=== PATIENT | female | born 1945 | race Caucasian/White ===

== ENCOUNTER → 2017-10-13 13:17 | Outpatient (CLI) | payer MEDICARE, OTHER, SELFPAY ==
--- NOTE | 2017-10-13 | DI.ECHO.S_ITS ---
[facility]+ [facility] +---------+ : : [address] : : : : [place] : : : : [id number] : : : : Phone: [phone]+ Echocardiogram Report + + :Name: TATO ALEMAN Study Date: 10/13/2017 Height: 63 in : :[facility] Exam Location: IS Weight: 143 lb : : Gender: Female BSA: 1.7 m2 : :: 1945 Age: 72 yrs BP: 130/82 mmHg: :Reason For Study: RBBB : : Performed By: Aubrey Reese : :Referring: SURESH GAGNON : + + Interpretation Summary The left ventricle is normal in size. The ejection fraction is estimated to be 60-65%. Septal motion is consistent with conduction abnormality. Assessment of diastolic parameters indicates a relaxation abnormality of the left ventricle, consistent with normal filling pressures. The right ventricle is normal in size and function. The right ventricular systolic pressure is estimated at 26 mmHg assuming a right atrial pressure of 3 mm Hg. Both atria are normal in size. There is no significant valvular heart disease. The aortic root is normal size. Procedure: A two-dimensional transthoracic echocardiogram with color flow and Doppler was performed. The study quality was technically adequate. There is no prior echocardiogram noted for this patient. The patient had a bundle branch block rhythm during the exam. Left Ventricle: The left ventricle is normal in size. There is normal left ventricular wall thickness. The ejection fraction is estimated to be 60-65%. Septal motion is consistent with conduction abnormality. Assessment of diastolic parameters indicates a relaxation abnormality of the left ventricle, consistent with normal filling pressures. Right Ventricle: The right ventricle is normal in size and function. Atria: Both atria are normal in size. The interatrial septum is intact with no evidence for an atrial septal defect. Mitral Valve: The mitral valve is normal in structure and function. There is trace mitral regurgitation. Aortic Valve: The aortic valve is normal in structure and function. The aortic valve is trileaflet. The aortic valve opens well. No aortic regurgitation is present. Tricuspid Valve: The tricuspid valve is normal in structure and function. There is trace tricuspid regurgitation. The right ventricular systolic pressure is estimated at 26 mmHg assuming a right atrial pressure of 3 mm Hg. Pulmonic Valve: The pulmonic valve is normal in structure and function. There is trace pulmonic regurgitation. There is no significant valvular heart disease. Great Vessels: The aortic root is normal size. The dimensions of the ascending aorta are normal. The pulmonary artery is normal size. The IVC is of normal diameter and collapses greater than 50% with a sniff. This suggests a low right atrial pressure of 3 mm Hg. Pericardium/ Pleura There is no pericardial effusion. There is no pleural effusion. MMode/2D Measurements & Calculations LVIDd: 4.4 cm Ao root diam: 3.0 cm LVIDs: 2.3 cm Aortic Jxn: 2.7 cm FS: 48.0 % asc Aorta Diam: 3.0 cm EPSS: 0.19 cm Ao Arch Diam (Prox Trans): 2.4 cm IVSd: 0.70 cm LVPWd: 0.70 cm LV grier. diameter/BSA (cm/m^2): 2.6 LV sys. diameter/BSA (cm/m^2): 1.4 LA dimension: 3.3 cm RA long axis: 3.9 cm LA A2 area: 15.7 cm2 RA area: 10.8 cm2 LA A4 area: 12.3 cm2 RA vol: 25.4 ml LA length (vol): 4.1 cm RA : 15.1 ml/m2 LA vol: 39.7 ml IVC diam: 1.6 cm LA vol index: 23.7 ml/m2 Doppler Measurements & Calculations Ao V2 max: 132.3 cm/sec MV E max taye: 65.8 cm/sec Ao V2 mean: 95.9 cm/sec MV A max taye: 77.0 cm/sec Ao max P.0 mmHg MV E/A: 0.85 Ao mean P.0 mmHg Med Peak E' Taye: 5.6 cm/sec Ao V2 VTI: 27.1 cm E/E' med: 11.7 MV dec time: 0.24 sec TR max taye: 241.4 cm/sec Pulm A Revs Taye: 36.7 cm/sec TR max P.3 mmHg PA V2 max: 85.6 cm/sec PA V2 mean: 64.1 cm/sec PA mean P.8 mmHg PA pr(Accel): 36.6 mmHg PA Accel Time: 0.09 sec Reading Physician:EDWARDO
== END ==
PROVIDERS: Visit Provider Internal Medicine Cardiovascular Disease
DX: I45.10 Unspecified right bundle-branch block (principal)
CPT/HCPCS: 93306

== ENCOUNTER → 2019-03-07 13:09 | Outpatient (CLI) | payer MEDICARE, OTHER, SELFPAY ==
[2019-03-07 14:00] LABS: C-Reactive Protein Quant < 0.5 mg/dL (<1.0)
[2019-03-07 14:34] LABS: Hematocrit 42.5 % (36-46); Hemoglobin 14.4 g/dL (12.0-16.0); Mean Corpuscular HGB Conc 33.9 % (30-36); Mean Corpuscular Hemoglobin 31.3 PG (26-34); Mean Corpuscular Volume 92.1 fL (80-100); Platelet Count 340 X10^3/uL (150-400); Red Blood Cell Count 4.61 X10^6/uL (4.0-5.2); White Blood Cell Count 6.1 X10^3/uL (4.5-11.0)
[2019-03-07 15:33] LABS: Erythrocyte Sedimentation Rate 3 MM/HR (0-20)
== END ==
PROVIDERS: Visit Provider Ophthalmology
DX: H34.231 Retinal artery branch occlusion, right eye (principal)
CPT/HCPCS: 36415; 85027; 85651; 86140

== ENCOUNTER → 2020-08-24 09:35 | Outpatient (CLI) | payer MEDICARE, OTHER, SELFPAY ==
[2020-08-24 19:35] LABS: Add Manual Diff / Slide Review NO; Basophils Absolute Auto 0 /uL (0-100); Basophils Percent Auto 0.2 % (0-2); Eosinophils Absolute Auto 100 /uL (0-450); Eosinophils Percent Auto 3.4 % (2-4); Hematocrit 41.8 % (36-46); Hemoglobin 14.3 g/dL (12.0-16.0); Lymphocytes Absolute Auto 1400 /uL (1100-4500); Lymphocytes Percent Auto 32.7 % (25-40); Mean Corpuscular HGB Conc 34.3 % (30-36); Mean Corpuscular Hemoglobin 31.7 PG (26-34); Mean Corpuscular Volume 92.3 fL (80-100); Monocytes Absolute Auto 500 /uL (0-900); Monocytes Percent Auto 11.2 % (3-14); Neutrophils Absolute Auto 2200 /uL (1500-7000); Neutrophils Percent Auto 52.5 % (50-75); Platelet Count 266 X10^3/uL (150-400); Red Blood Cell Count 4.53 X10^6/uL (4.0-5.2); Red Cell Distribution Width 14.2 % (11.6-14.8); White Blood Cell Count 4.2 X10^3/uL (4.5-11.0)
[2020-08-24 19:39] LABS: Alanine Aminotransferase 13 IU/L (<35); Albumin 3.9 g/dL (3.5-5.0); Albumin Globulin Ratio 1.7 (1.0-2.8); Alkaline Phosphatase 71 U/L (38-126); Aspartate Aminotransferase 24 IU/L (14-36); BUN Creatinine Ratio 29.2 (6-22); Bilirubin Total 0.5 mg/dL (0.2-1.3); Blood Urea Nitrogen 14 mg/dL (7-17); Calcium 9.4 mg/dL (8.4-10.2); Carbon Dioxide 27 mmol/L (22-32); Chloride 104 mmol/L (98-107); Cholesterol 188 mg/dL (140-199); Estimated Glomerular Filt Rate > 60.0 mL/min (>60); Globulin 2.3 g/dL (1.7-4.1); Glucose 94 mg/dL (80-110); HDL Cholesterol 70 mg/dL (40-60); HEMOLYSIS < 15 (0-50); LDL Cholesterol Calculated 103 mg/dL (<100); Potassium 4.4 mmol/L (3.4-5.1); Sodium 138 mmol/L (137-145); Total Protein 6.2 g/dL (6.3-8.2); Triglycerides 76 mg/dL (35-150)
[2020-08-24 20:06] LABS: TSH w/ Reflex to FT4 2.24 uIU/mL (0.47-4.68)
== END ==
PROVIDERS: PCP Physician Assistant Medical; Visit Provider Physician Assistant Medical
DX: N39.0 Urinary tract infection, site not specified (principal); R00.1 Bradycardia, unspecified; I44.7 Left bundle-branch block, unspecified; E78.5 Hyperlipidemia, unspecified; R53.83 Other fatigue; R60.0 Localized edema
CPT/HCPCS: 80053; 80061; 84443; 85025; 87086

== ENCOUNTER → 2020-12-21 10:20 | Outpatient (CLI) | payer MEDICARE, OTHER, SELFPAY | PROVIDERS: PCP Physician Assistant; Visit Provider Family Medicine | DX: N23 Unspecified renal colic (principal) | CPT/HCPCS: 87077; 87086 ==

== ENCOUNTER → 2021-02-04 08:58 | Outpatient (CLI) | payer MEDICARE, OTHER, SELFPAY ==
[2021-02-04 19:02] LABS: Add Manual Diff / Slide Review NO; Basophils Absolute Auto 100 /uL (0-100); Basophils Percent Auto 1.3 % (0-2); Eosinophils Absolute Auto 100 /uL (0-450); Eosinophils Percent Auto 2.1 % (2-4); Hematocrit 41.7 % (36-46); Hemoglobin 13.7 g/dL (12.0-16.0); Lymphocytes Absolute Auto 1700 /uL (1100-4500); Lymphocytes Percent Auto 28.7 % (25-40); Mean Corpuscular HGB Conc 32.9 % (30-36); Mean Corpuscular Volume 94.2 fL (80-100); Monocytes Absolute Auto 500 /uL (0-900); Neutrophils Absolute Auto 3600 /uL (1500-7000); Neutrophils Percent Auto 58.9 % (50-75); Platelet Count 346 X10^3/uL (150-400); Red Blood Cell Count 4.43 X10^6/uL (4.0-5.2); Red Cell Distribution Width 12.7 % (11.6-14.8); White Blood Cell Count 6.1 X10^3/uL (4.5-11.0)
[2021-02-04 19:09] LABS: Appearance Urine UA CLEAR; Bilirubin Urine UA NEGATIVE (NEGATIVE); Color Urine UA YELLOW; Glucose Urine UA NEGATIVE (Negative); Ketones Urine UA TRACE (NEGATIVE); Leukocyte Esterase Urine UA NEGATIVE (NEGATIVE); Nitrite Urine UA NEGATIVE (Negative); Occult Blood Urine UA TRACE-INTACT (Negative); Protein Urine UA NEGATIVE (Negative); Urobilinogen Urine UA 0.2 E.U./dL (0.2)
[2021-02-04 19:15] LABS: Cholesterol 270 mg/dL (140-199); HDL Cholesterol 77 mg/dL (40-60); LDL Cholesterol Calculated 179 mg/dL (<100); Triglycerides 72 mg/dL (35-150)
[2021-02-04 19:16] LABS: Alanine Aminotransferase 13 IU/L (<35); Albumin Globulin Ratio 1.6 (1.0-2.8); Alkaline Phosphatase 73 U/L (38-126); Aspartate Aminotransferase 21 IU/L (14-36); BUN Creatinine Ratio 48.9 (6-22); Bilirubin Total 0.5 mg/dL (0.2-1.3); Blood Urea Nitrogen 22 mg/dL (7-17); Calcium 9.6 mg/dL (8.4-10.2); Carbon Dioxide 29 mmol/L (22-32); Chloride 104 mmol/L (98-107); Estimated Glomerular Filt Rate > 60.0 mL/min (>60); Globulin 2.5 g/dL (1.7-4.1); Glucose 95 mg/dL (80-110); HEMOLYSIS < 15 (0-50); Potassium 4.6 mmol/L (3.4-5.1); Sodium 139 mmol/L (137-145); Total Protein 6.5 g/dL (6.3-8.2)
[2021-02-04 19:25] LABS: Bacteria Urine Occasional (0-1); Calcium Oxalate Crystals Urine Few; Culture Indicated Urine Cult Not Indicated; RBC Urine 0-1/HPF (0-5/HPF); Squamous Epithelial Cell Urine 0-1 /HPF (0-5/HPF); WBC Urine 0-1/HPF (0-5/HPF)
== END ==
PROVIDERS: PCP Physician Assistant; Visit Provider Physician Assistant
DX: Z01.818 Encounter for other preprocedural examination (principal); E78.49 Other hyperlipidemia; E78.00 Pure hypercholesterolemia, unspecified; N28.9 Disorder of kidney and ureter, unspecified
CPT/HCPCS: 80053; 80061; 81001; 85025; 87797

== ENCOUNTER 2021-02-06 12:53 | Outpatient (RCR) | payer MEDICARE, OTHER, SELFPAY ==
--- NOTE | 2021-02-06 16:00 | PT.OPPOC ---
Physical, Occupational & Speech Therapy At [facility] Current Diagnoses Other specified disorders of muscle (02/06/21) Visit Care Team Role Provider Type Mariana Nance PA-C Primary Care Provider [employer] Sales Representative Specialty: Medical Address: [address] [place] [address], [id number] Email: [email or web address] Amaury Collins DO Attending Provider Physician Referring Provider Specialty: Family Practice Address: [address] [place] [address], [id number] Email: Plan Of Care PT-OP-T Assessment and Plan Start: 01/31/21 15:55 Freq: Status: Active Protocol: Document 02/06/21 13:00 AMB (Rec: 02/12/21 08:10 AMB [email or web address]) Physical Therapy Assessment Rehab Potential Rehabilitation Potential Fair Evaluation Complexity Number of Personal Factors/Comorbidities 1-2 Number of Body Systems Impaired 1-2 Clinical Presentation at Evaluation Stable Impairments Impairments Functional Activities,Strength Goals Two Impairment Pelvic floor strength Short Term Goal (STG) Lisa will contract her pelvic floor for 10 seconds without compensating with her abdominals. STG Duration 1 month Lacer And Tier Goal (LTG) Lisa will contract her pelvic floor in standing for 10 seconds without compensation. LTG Duration 3 months One Impairment Continence Short Term Goal (STG) Lisa will report less than 3 leaks per week. STG Duration 1 month [facility] Goal (LTG) Lisa will report nocturia of 1 -2x/night or less. LTG Duration 3 months Assessment Summary Assessment Lisa attends physical therapy with leaking, but she is fairly uncertain what causes leaks. Did give her a bladder diary to fill out to understand what is causing leaks (urge vs stress), but pt is getting a knee replacement soon and does not want to return to pelvic floor physical therapy for a few months. Encouraged her in pelvic floor contraction- pt had been using abdominals quite heavily and did educate in pressure management and lifting levator ani during evaluation. Lisa will benefit from continued PT when she is able to attend after her knee replacement. Physical Therapy Plan Frequency and Duration Frequency of Treatment 1/month Duration of Treatment 3 months Plan of Care Start Date 02/06/21 Plan of Care End Date 05/09/21 Therapeutic Interventions Therapeutic Interventions Home Exercise Program,Manual Therapy,Neuromuscular Re- education,Self-Care/Home Management,Therapeutic Activities,Therapeutic Exercises Modalities Biofeedback,Electric Stimulation Next Visit Focus/Plan Next Note Type Treatment Note Next Visit Plan sEMG, progress HEP Plan of Care Dates Plan of Care Start Date 02/06/21 Plan of Care End Date 05/09/21 Electronically Signed by: Frances Shaffer, PT 02/17/21 [id number] Please Sign and Return: I have reviewed this Plan of Care and certify that the skilled therapy services above are required to meet the patient?s needs. Physician Signature Date Printed Name and Credentials Clinical Instructor Signature Printed Name and Credentials
--- NOTE | 2021-02-06 16:00 | PT.OIE ---
Current Diagnoses Other specified disorders of muscle (02/06/21) Past Medical History (Last Updated 09/30/20 @ 07:39 by Abby Landa) Chicken pox (~1951) Chondromalacia of left patellofemoral joint Depression (~2005) History of tubal ligation (~1978) Hx of left knee surgery (~2011) Measles (~1950) Primary osteoarthritis of right knee S/P tonsillectomy and adenoidectomy Skin tag Status post left partial knee replacement (~2011) Status post right partial knee replacement (~2010) Past Surgical History (Last Updated 09/30/20 @ 07:39 by Abby Landa) Anesthesia History of tubal ligation (~1978) Hx of left knee surgery (~2011) S/P tonsillectomy and adenoidectomy Status post left partial knee replacement (~2011) Status post right partial knee replacement (~2010) Visit Care Team Role Provider Type Mariana Nance PA-C Primary Care Provider Advanced Program Manager Rn Specialty: Medical Address: [address] [place] [address], [id number] Email: [email or web address] Amaury Collins DO Attending Provider Physician Referring Provider Specialty: Family Practice Address: [address] [place] [address], [id number] Email: Physical Therapy Initial Evaluation PT-OP-A Visit Information Start: 01/31/21 15:55 Freq: Status: Active Protocol: Document 02/06/21 13:00 AMB (Rec: 02/10/21 11:43 AMB [email or web address]) Out-Patient Physical Therapy Visit Information Visit Information Visit Type Initial Evaluation Visit Start Time 13:00 Visit Stop Time 13:45 Total Visit Minutes 45 Visit Number 1 PT-OP-B Current Condition Start: 01/31/21 15:55 Freq: Status: Active Protocol: Document 02/06/21 12:56 AMB (Rec: 02/06/21 13:40 AMB [id number]) Current Condition History of Current Condition Onset Date 6 months Current Complaints Urgency History of Current Condition Lisa reports drinking 64oz a day of water lately due to a diet and leaking due to that. Does report history of frequent UTIs. Medium leak, but not sure what causes it. Around 1 leak a day. Post void residual was normal. 2 vaginal deliveries- episiotomy with first. Menopause was on hormone replacement. Personal Factors Other Personal Factors That May Effect Pt lives in the [facility], is getting a knee replacement so is hesitant to schedule more appointments. PT-OP-I Pelvic Floor Start: 01/31/21 15:55 Freq: Status: Active Protocol: Document 02/06/21 13:00 AMB (Rec: 02/12/21 08:17 AMB [email or web address]) Pelvic Floor Assessment Urine Pelvic Floor Surgery No Leakage Size Medium Leaks Per Day 1 Voiding Frequency unsure Nocturia 2-3 Bowel Bowel Symptoms Constipation Prolapse Cystocele Grade 1 Perineal Descent Resting Absent Bearing Present Contraction Ability Voluntary Contraction Weak Voluntary Relaxation Weak Manual Muscle Testing Left 2 Manual Muscle Testing Right 2 Manual Muscle Testing Anterior 2 Manual Muscle Testing Posterior 3 PT-OP-T Assessment and Plan Start: 01/31/21 15:55 Freq: Status: Active Protocol: Document 02/06/21 13:00 AMB (Rec: 02/12/21 08:10 AMB [email or web address]) Physical Therapy Assessment Rehab Potential Rehabilitation Potential Fair Evaluation Complexity Number of Personal Factors/Comorbidities 1-2 Number of Body Systems Impaired 1-2 Clinical Presentation at Evaluation Stable Impairments Impairments Functional Activities,Strength Goals Two Impairment Pelvic floor strength Short Term Goal (STG) Lisa will contract her pelvic floor for 10 seconds without compensating with her abdominals. STG Duration 1 month Group Home Goal (LTG) Lisa will contract her pelvic floor in standing for 10 seconds without compensation. LTG Duration 3 months One Impairment Continence Short Term Goal (STG) Lisa will report less than 3 leaks per week. STG Duration 1 month Lollypop Machine Operator Goal (LTG) Lisa will report nocturia of 1 -2x/night or less. LTG Duration 3 months Assessment Summary Assessment Lisa attends physical therapy with leaking, but she is fairly uncertain what causes leaks. Did give her a bladder diary to fill out to understand what is causing leaks (urge vs stress), but pt is getting a knee replacement soon and does not want to return to pelvic floor physical therapy for a few months. Encouraged her in pelvic floor contraction- pt had been using abdominals quite heavily and did educate in pressure management and lifting levator ani during evaluation. Lisa will benefit from continued PT when she is able to attend after her knee replacement. Physical Therapy Plan Frequency and Duration Frequency of Treatment 1/month Duration of Treatment 3 months Plan of Care Start Date 02/06/21 Plan of Care End Date 05/09/21 Therapeutic Interventions Therapeutic Interventions Home Exercise Program,Manual Therapy,Neuromuscular Re- education,Self-Care/Home Management,Therapeutic Activities,Therapeutic Exercises Modalities Biofeedback,Electric Stimulation Next Visit Focus/Plan Next Note Type Treatment Note Next Visit Plan sEMG, progress HEP
--- NOTE | 2021-04-16 09:18 | PT.OPDS ---
Current Diagnoses Other specified disorders of muscle (02/06/21) Visit Care Team Role Provider Type Mariana Nance PA-C Primary Care Provider [employer] Specialty: Medical Address: [address] [place] [address], [id number] Email: [email or web address] Amaury Collins DO Attending Provider Physician Referring Provider Specialty: Family Practice Address: [address] [place] [address], [address] Email: Visit Number Visit Number 1 Discharge Summary PT-OP-B Current Condition Start: 01/31/21 15:55 Freq: Status: Active Protocol: Document 02/06/21 12:56 AMB (Rec: 02/06/21 13:40 AMB [id number]) Current Condition History of Current Condition Onset Date 6 months Current Complaints Urgency History of Current Condition Lisa reports drinking 64oz a day of water lately due to a diet and leaking due to that. Does report history of frequent UTIs. Medium leak, but not sure what causes it. Around 1 leak a day. Post void residual was normal. 2 vaginal deliveries- episiotomy with first. Menopause was on hormone replacement. Personal Factors Other Personal Factors That May Effect Pt lives in the [facility], is getting a knee replacement so is hesitant to schedule more appointments. PT-OP-I Pelvic Floor Start: 01/31/21 15:55 Freq: Status: Active Protocol: Document 02/06/21 13:00 AMB (Rec: 02/12/21 08:17 AMB [email or web address]) Pelvic Floor Assessment Urine Pelvic Floor Surgery No Leakage Size Medium Leaks Per Day 1 Voiding Frequency unsure Nocturia 2-3 Bowel Bowel Symptoms Constipation Prolapse Cystocele Grade 1 Perineal Descent Resting Absent Bearing Present Contraction Ability Voluntary Contraction Weak Voluntary Relaxation Weak Manual Muscle Testing Left 2 Manual Muscle Testing Right 2 Manual Muscle Testing Anterior 2 Manual Muscle Testing Posterior 3 PT-OP-T Assessment and Plan Start: 01/31/21 15:55 Freq: Status: Active Protocol: Document 04/16/21 09:04 AMB (Rec: 04/16/21 09:18 AMB [id number]) Physical Therapy Assessment Goals Two Impairment Pelvic floor strength Short Term Goal (STG) Lisa will contract her pelvic floor for 10 seconds without compensating with her abdominals. STG Duration 1 month Otr Flatbed Driver Goal (LTG) Lisa will contract her pelvic floor in standing for 10 seconds without compensation. LTG Duration 3 months One Impairment Continence Short Term Goal (STG) Lisa will report less than 3 leaks per week. STG Duration 1 month Fpc Goal (LTG) Lisa will report nocturia of 1 -2x/night or less. LTG Duration 3 months Assessment Summary Assessment Called pt and while she is now recovered from her knee replacement, she is going to [place] for 3 months. She would be interested in returning to PT at that point, would also be interested in telehealth if it is offered.
== END 2021-05-28 08:50 ==
LOC: PHYS 12:53
PROVIDERS: PCP Physician Assistant; Referring Provider Family Medicine; Visit Provider Family Medicine
DX: M62.89 Other specified disorders of muscle (principal)
CPT/HCPCS: 97161

== ENCOUNTER → 2021-03-25 11:22 | Outpatient (CLI) | payer MEDICARE, OTHER, SELFPAY | PROVIDERS: PCP Physician Assistant; Visit Provider Physician Assistant | DX: R53.83 Other fatigue (principal); N39.0 Urinary tract infection, site not specified | CPT/HCPCS: 87077; 87086; 87186 ==

== ENCOUNTER → 2021-04-10 08:27 | Outpatient (CLI) | payer MEDICARE, OTHER, SELFPAY ==
[2021-04-10 19:53] LABS: Alanine Aminotransferase 16 IU/L (<35); Albumin Globulin Ratio 1.5 (1.0-2.8); Alkaline Phosphatase 80 U/L (38-126); Aspartate Aminotransferase 24 IU/L (14-36); Bilirubin Total 0.5 mg/dL (0.2-1.3); Blood Urea Nitrogen 18 mg/dL (7-17); Calcium 9.6 mg/dL (8.4-10.2); Carbon Dioxide 28 mmol/L (22-32); Chloride 106 mmol/L (98-107); Cholesterol 230 mg/dL (140-199); Estimated Glomerular Filt Rate > 60.0 mL/min (>60); Globulin 2.6 g/dL (1.7-4.1); Glucose 96 mg/dL (80-110); HDL Cholesterol 74 mg/dL (40-60); HEMOLYSIS < 15 (0-50); LDL Cholesterol Calculated 142 mg/dL (<100); Potassium 4.3 mmol/L (3.4-5.1); Sodium 139 mmol/L (137-145); Total Protein 6.6 g/dL (6.3-8.2); Triglycerides 71 mg/dL (35-150)
== END ==
PROVIDERS: PCP Physician Assistant; Visit Provider Physician Assistant
DX: E78.49 Other hyperlipidemia (principal); N28.9 Disorder of kidney and ureter, unspecified
CPT/HCPCS: 80053; 80061

== ENCOUNTER → 2021-11-25 09:18 | Outpatient (CLI) | payer MEDICARE, OTHER, SELFPAY | PROVIDERS: PCP Physician Assistant | DX: R53.83 Other fatigue (principal) | CPT/HCPCS: 87077; 87086; 87186 ==

== ENCOUNTER → 2021-12-09 14:21 | Outpatient (CLI) | payer MEDICARE, OTHER, SELFPAY | PROVIDERS: PCP Physician Assistant; Visit Provider Family Medicine | DX: N39.0 Urinary tract infection, site not specified (principal); R30.0 Dysuria | CPT/HCPCS: 87086 ==

== ENCOUNTER → 2022-01-08 10:10 | Outpatient (CLI) | payer MEDICARE, OTHER, SELFPAY ==
--- NOTE | 2022-01-08 10:12 | DI.CT.S_ITS ---
PROCEDURE: CT IVP A/P W/WO INDICATIONS: New Patient. Hematuria TECHNIQUE: Optional 5 mm thick noncontrast images acquired from the diaphragm to the symphysis pubis. After the administration of intravenous contrast, 5 mm thick images acquired from the diaphragm to the symphysis pubis after a 10-minute delay. 2 mm thick coronal and sagittal reformats were then performed of the kidneys and ureters. For radiation dose reduction, the following was used: automated exposure control, adjustment of mA and/or kV according to patient size. COMPARISON: None. FINDINGS: Image quality: Excellent. Lung bases: Lung bases are clear. Heart size is normal. Small hiatal hernia. Urinary system: Both kidneys are normal in size, without hydronephrosis or nephrolithiasis on pre-contrast images. No perinephric fat stranding. There is normal bilateral renal enhancement. Renal calyces appear normal in morphology when filled with contrast. Bilateral peripelvic cysts. Opacified portions of both ureters demonstrate normal caliber. Bladder wall thickness is normal. No calcified bladder stones. Other solid organs: Liver is normal in size and enhancement. Gallbladder is contracted, within normal limits . Biliary system is non dilated. Pancreas enhances normally. Spleen is normal in size and enhancement. No adrenal nodules. Peritoneum and bowel: Bowel loops demonstrate normal wall thickness and caliber. No free fluid or air. Nodes and vessels: No retroperitoneal or mesenteric adenopathy by size criteria. Aorta and inferior vena cava are normal in size. Abdominal wall: Small fat containing periumbilical hernia. Pelvis: No pathologic free pelvic fluid. No inguinal hernias or adenopathy. Total right hip prosthesis results in significant metallic artifact. Remote hysterectomy. Bones: No suspicious bony lesions. No vertebral body compression fractures. IMPRESSION: 1. No evidence of renal stone, ureteral stone, hydronephrosis, or malignancy. 2. No evidence of acute abdominal process. Dictated by: Anshul Shelby M.D. on 01/08/2022 at 13:10 Approved by: Anshul Shelby M.D. on 01/08/2022 at 13:19
[2022-01-08 10:42] LABS: BUN Creatinine Ratio 33.9 (6-22); Blood Urea Nitrogen 21 mg/dL (7-17); Calcium 9.2 mg/dL (8.4-10.2); Carbon Dioxide 29 mmol/L (22-32); Chloride 101 mmol/L (98-107); Estimated Glomerular Filt Rate > 60 mL/min (>60); Glucose 137 mg/dL (80-110); HEMOLYSIS < 15 (0-50); Sodium 139 mmol/L (137-145)
== END ==
PROVIDERS: PCP Physician Assistant; Referring Provider Urology; Visit Provider Urology
DX: N39.0 Urinary tract infection, site not specified (principal)
CPT/HCPCS: 36415; 74178; 80048; Q9967

== ENCOUNTER → 2022-03-17 11:34 | Outpatient (CLI) | payer MEDICARE, OTHER, SELFPAY ==
[2022-03-17 19:47] LABS: Add Manual Diff / Slide Review NO; Basophils Absolute Auto 100 /uL (0-100); Basophils Percent Auto 1.4 % (0-2); Eosinophils Absolute Auto 100 /uL (0-450); Hematocrit 38.9 % (36-46); Lymphocytes Absolute Auto 1700 /uL (1100-4500); Lymphocytes Percent Auto 37.3 % (25-40); Mean Corpuscular HGB Conc 33.5 % (30-36); Mean Corpuscular Hemoglobin 30.8 PG (26-34); Monocytes Absolute Auto 500 /uL (0-900); Neutrophils Absolute Auto 2200 /uL (1500-7000); Neutrophils Percent Auto 49.3 % (50-75); Platelet Count 344 X10^3/uL (150-400); Red Blood Cell Count 4.22 X10^6/uL (4.0-5.2); Red Cell Distribution Width 13.1 % (11.6-14.8); White Blood Cell Count 4.5 X10^3/uL (4.5-11.0)
[2022-03-17 20:10] LABS: Alanine Aminotransferase 15 IU/L (<35); Albumin 3.9 g/dL (3.5-5.0); Albumin Globulin Ratio 1.5 (1.0-2.8); Alkaline Phosphatase 88 U/L (38-126); Aspartate Aminotransferase 21 IU/L (14-36); BUN Creatinine Ratio 32.7 (6-22); Bilirubin Total 0.8 mg/dL (0.2-1.3); Blood Urea Nitrogen 16 mg/dL (7-17); Carbon Dioxide 26 mmol/L (22-32); Chloride 102 mmol/L (98-107); Cholesterol 213 mg/dL (140-199); Estimated Glomerular Filt Rate > 60 mL/min (>60); Globulin 2.6 g/dL (1.7-4.1); Glucose 91 mg/dL (80-110); HDL Cholesterol 62 mg/dL (40-60); HEMOLYSIS 24 (0-50); LDL Cholesterol Calculated 138 mg/dL (<100); Magnesium 2.1 mg/dL (1.6-2.3); Potassium 4.5 mmol/L (3.4-5.1); Sodium 136 mmol/L (137-145); Total Protein 6.5 g/dL (6.3-8.2); Triglycerides 66 mg/dL (35-150)
== END ==
PROVIDERS: PCP Physician Assistant; Visit Provider Physician Assistant
DX: R60.0 Localized edema (principal); E78.49 Other hyperlipidemia; R53.83 Other fatigue; D72.819 Decreased white blood cell count, unspecified; E78.00 Pure hypercholesterolemia, unspecified; N28.9 Disorder of kidney and ureter, unspecified
CPT/HCPCS: 80053; 80061; 83735; 85025

== ENCOUNTER → 2022-04-02 14:11 | Outpatient (CLI) | payer MEDICARE, OTHER, SELFPAY | PROVIDERS: PCP Physician Assistant; Referring Provider Physician Assistant; Visit Provider Physician Assistant | DX: M81.0 Age-related osteoporosis without current pathological fracture (principal); Z13.820 Encounter for screening for osteoporosis; Z78.0 Asymptomatic menopausal state | CPT/HCPCS: 77080 ==